=== PATIENT | male | born 1995 | race Hispanic/Latino ===

== ENCOUNTER 2024-07-01 08:02 | Emergency (ER) | payer OTHER ==
[~2024-07-01] VITALS: Ht 175.3 cm; Wt 250.0 kg
[2024-07-01] MEDS ORDERED: MORPHINE SULFATE 4 MG/ML VIAL IV ONE (08:15)
[2024-07-01] MEDS ORDERED: ONDANSETRON 4 MG/TAB ODT PO ONE (08:15)
[2024-07-01] MEDS ORDERED: MORPHINE SULFATE 4 MG/ML VIAL IM ONE (08:30)
[2024-07-01 09:05] VITALS: BP 127/90
[2024-07-01 09:16] VITALS: BP 135/108
[2024-07-01 09:31] VITALS: BP 134/90
[2024-07-01] MEDS ORDERED: MOTRIN400 MG/TAB PO (09:36)
[2024-07-01] MEDS ORDERED: FLEXERIL5 M1 PO (09:36)
[2024-07-01 09:55] VITALS: BP 134/90
== END 2024-07-01 09:55 | disposition home or self-care (01) | DRG 552 ==
LOC: ED 08:02
DX: M54.2 Cervicalgia (principal); M54.6 Pain in thoracic spine; M54.50 Low back pain, unspecified; E66.9 Obesity, unspecified; V49.50XA Passenger injured in collision with unspecified motor vehicles in traffic accident, initial encounter